=== PATIENT | female | born 1995 | race Caucasian/White ===

== ENCOUNTER 2020-08-03 09:15 | Emergency (ER) | payer MEDICAID ==
[~2020-08-03] VITALS: Ht 195.6 cm; Wt 111.6 kg
--- NOTE | 2020-08-03 09:15 | NUR ---
PT [id number] FRM SCHVN C/O ABDOMINAL PAIN. PT IS AAOX4, NOT IN RESPIRATORY DISTRESS, V/S STABLE, KEPT RESTED AND COMFORTABLE. WILL CONTINUE TO MONITOR.
--- NOTE | 2020-08-03 09:29 | NUR ---
SEEN AND EXAMINED BY .
[2020-08-03] MEDS ORDERED: ONDANSETRON 4 MG TAB.RAPDIS SL ONE (09:30)
[2020-08-03] MEDS ORDERED: ONDANSETRON 4 MG TAB.RAPDIS ONE (09:35)
--- NOTE | 2020-08-03 09:35 | NUR ---
ER PHLEB AT BEDSIDE FOR BLOOD DRAW.
[2020-08-03 09:48] LABS: BASOPHILS # (AUTO) 0.1 /CMM (0.0-0.2); BASOPHILS % (AUTO) 0.7 % (0.0-2.0); EOSINOPHILS % (AUTO) 1.3 % (0.0-6.0); HEMATOCRIT 41 % (33-45); HEMOGLOBIN 13.5 g/dL (11.5-14.8); LYMPHOCYTES # (AUTO) 2.3 /CMM (0.8-4.8); LYMPHOCYTES % (AUTO) 30.7 % (20.0-44.0); MEAN CORPUSCULAR HGB CONC 33 g/dl (31.0-36.0); MEAN CORPUSCULAR VOLUME 90 fL (82-100); MONOCYTES # (AUTO) 0.3 /CMM (0.1-1.30); MONOCYTES % (AUTO) 4.7 % (2.0-12.0); NEUTROPHILS # (AUTO) 4.6 /CMM (1.8-8.9); NEUTROPHILS % (AUTO) 62.6 % (43.0-81.0); PLATELET COUNT (AUTO) 357 /CMM (150-450); RED BLOOD CELL COUNT(AUTO) 4.55 MIL/uL (4.0-5.2); WHITE BLOOD COUNT (AUTO) 7.4 K/uL (4.3-11.0)
[2020-08-03 09:54] LABS: CALCIUM, SERUM 9.2 mg/dL (8.5-10.1); CREATININE 0.6 mg/dL (0.6-1.3); POTASSIUM 4.2 mmol/L (3.5-5.1)
[2020-08-03 10:00] LABS: ALBUMIN 3.7 g/dL (3.4-5.0); BILIRUBIN,DIRECT 0.1 mg/dL (0.0-0.2); BILIRUBIN,TOTAL 0.3 mg/dL (0.2-1.0); TOTAL PROTEIN, SERUM 7.4 g/dL (6.4-8.2)
--- NOTE | 2020-08-03 10:35 | NUR ---
REPORT GIVEN TO EDDIE, NURSING SUP. WILL GO BACK TO [facility].
--- NOTE | 2020-08-03 10:42 | NUR ---
[facility].
--- NOTE | 2020-08-03 10:44 | NUR ---
CALLED [facility] ETA 1700
--- NOTE | 2020-08-03 10:45 | NUR ---
CALLED [facility] WITH ETA OF 60 MINS.
[2020-08-03] MEDS ORDERED: ACETAMINOPHEN ES 500 MG TABLET ONE (10:54)
[2020-08-03] MEDS ORDERED: ACETAMINOPHEN ES 500 MG TABLET PO ONE (11:00)
--- NOTE | 2020-08-03 12:40 | NUR ---
REPORT GIVEN TO EMS FOR PT TRANSFER BACK TO [facility].
[2020-08-03 12:43] VITALS: BP 120/77
== END 2020-08-03 12:44 ==
LOC: ER 09:38
DX: R10.13 Epigastric pain (principal); R11.2 Nausea with vomiting, unspecified; F41.9 Anxiety disorder, unspecified
CPT/HCPCS: 36415; 80048; 80076; 83690; 85025; 99283; Q0162